=== PATIENT | female | born 1975 ===

== ENCOUNTER 2024-04-04 14:36 | Outpatient (CLI) | payer OTHER, SELFPAY | END 2024-04-04 14:37 | disposition home or self-care (01) | LOC: AMB 04-18 08:48 | PROVIDERS: Visit Provider Emergency Medicine | DX: F29 Unspecified psychosis not due to a substance or known physiological condition (principal); R41.82 Altered mental status, unspecified | CPT/HCPCS: A0425; A0427 ==

== ENCOUNTER 2024-04-04 15:48 | Emergency (ER) | payer OTHER, SELFPAY ==
[2024-04-04 15:56] VITALS: BMI 27.4
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
== END 2024-04-04 20:30 | disposition home or self-care (01) ==
PROVIDERS: Emergency Provider Emergency Medicine
DX: F41.9 Anxiety disorder, unspecified (principal); F43.10 Post-traumatic stress disorder, unspecified; S06.0X0A Concussion without loss of consciousness, initial encounter; Z59.02 Unsheltered homelessness
CPT/HCPCS: 99283